=== PATIENT | female | born 1965 ===

== ENCOUNTER 2017-07-24 18:32 | Emergency (ER) | payer MEDICAID ==
[2017-07-24 18:35] VITALS: BP 105/67; PULSE 62; RESP 16; TEMP 98.3; O2SAT 100
--- NOTE | 2017-07-24 20:12 | ED PDOC ---
Syncope/Near Syncope/Dizziness Time Seen by Provider: 07/24/17 19:08 Chief Complaint (Nursing): Dizziness/Lightheaded Chief Complaint (Provider): Dizziness History Per: Patient History/Exam Limitations: no limitations Onset/Duration Of Symptoms: Days (x1) Current Symptoms Are (Timing): Still Present Seizure Or Post-ictal Symptoms: None Additional Complaint(s): Leigh Stanley is a 52 year old female, with a past medical history HTN, diabetes , hypercholesterolemia, hypothyroidism and gastritis, who presents to the emergency department complaining of vertiginous dizziness onset since last night. Patient states symptoms are worst when she tries to walk. Today it was so severe she thought she was going to pass out but didn't. Patient also reports chronic constipation, mild rhinorrhea for about a month, nausea, and diffused body cramping but denies any vomiting, headache, focal weakness, fever , cough, sore throat, blurry vision except for the time she almost passed out. No further medical complaints. PMD: Dr. Fisher Past Medical History Reviewed: Historical Data, Nursing Documentation, Vital Signs Vital Signs: Last Vital Signs Temp 98.3 F 07/24/17 18:33 Pulse 62 07/24/17 18:33 Resp 16 07/24/17 18:33 BP 105/67 07/24/17 18:33 Pulse Ox 100 07/24/17 18:33 - Medical History PMH: Anemia, Back Problems, Diabetes, Gastritis, GERD, HTN, Hypercholesterolemia , Hypothyroidism Denies: Chronic Kidney Disease - Surgical History Surgical History: Back Surgery, Hernia Repair Other surgeries: gastric bypass, hysterectomy, neck and back surgery - Family History Family History: States: Hypertension - Social History Current smoker - smoking cessation education provided: Yes (light smoker ) Alcohol: None Drugs: Denies - Home Medications Home Medications: Ambulatory Orders Medication Instructions Recorded Carvedilol [Coreg] 3.125 mg PO BID 02/03/15 Levothyroxine [Synthroid] 88 mcg PO DAILY 02/03/15 Lisinopril 40 mg PO DAILY 02/03/15 MetFORMIN [glucoPHAGE] 1,000 mg PO BID 02/03/15 Omeprazole [PrilOSEC] 40 mg PO DAILY 02/03/15 Sitagliptin Phosphate [Januvia] 50 mg PO DAILY 02/03/15 buPROPion XL [Wellbutrin XL] 300 mg PO DAILY 02/03/15 Cyanocobalamin (Vitamin B-12) 5,000 mcg PO DAILY 03/17/15 [Vitamin B-12] Ergocalciferol (Vitamin D2) 50,000 unit PO QWK 03/17/15 [Vitamin D2] Famotidine [Pepcid] 20 mg PO DAILY 03/17/15 Ferrous Sulfate [Feosol] 325 mg PO TID 03/17/15 Liraglutide [Victoza 2-Bill] 1.8 mg SC DAILY 03/17/15 Topiramate [Topamax] 50 mg PO DAILY 03/17/15 hydroCHLOROthiazide [Hydrodiuril] 25 mg PO DAILY 03/17/15 Hydrocodone/Acetaminophen 1 tab PO QID PRN #15 tab 06/15/15 [Hydrocodone-Acetaminophen 325 mg-5 mg] Oxycodone HCl/Acetaminophen 1 each PO Q6 PRN #10 tablet 10/14/15 [Percocet 5-325 mg Tablet] Cyclobenzaprine [Cyclobenzaprine 10 mg PO BID PRN #10 tab 03/14/16 HCl] Naproxen 500 mg PO BID PRN #20 tab 03/14/16 Oxycodone HCl/Acetaminophen 1 tab PO Q6 PRN #10 tab 03/14/16 [Percocet 325 mg-5 mg] diaZEpam [Valium] 5 mg PO Q8 PRN #12 tab 03/18/16 oxyCODONE/Acetaminophen [Percocet 1 ea PO Q6 PRN #10 tab 03/18/16 5/325 mg Tab] Meclizine HCl 50 mg PO BID PRN #30 tablet 07/24/17 Ondansetron ODT [Zofran ODT] 1 odt PO Q6 PRN #20 odt 07/24/17 - Allergies Allergies/Adverse Reactions: Allergies Allergy/AdvReac Type Severity Reaction Status Date / Time No Known Allergies Allergy Verified 02/17/15 09:21 Review of Systems ROS Statement: Except As Marked, All Systems Reviewed And Found Negative Constitutional: Positive for: Other (diffused body cramping). Negative for: Fever Eyes: Negative for: Vision Change (blurry vision) ENT: Positive for: Nose Discharge (mild rhinorrhea). Negative for: Throat Pain Respiratory: Negative for: Cough Gastrointestinal: Positive for: Nausea, Constipation (chronic). Negative for: Vomiting Neurological: Positive for: Dizziness. Negative for: Weakness (focal), Headache Physical Exam - Reviewed Nursing Documentation Reviewed: Yes Vital Signs Reviewed: Yes - Physical Exam Appears: Positive for: No Acute Distress Head Exam: Positive for: ATRAUMATIC, NORMOCEPHALIC Skin: Positive for: Warm, Dry Eye Exam: Positive for: EOMI, PERRL. Negative for: Nystagmus ENT: Negative for: Pharyngeal Erythema, Tonsillar Exudate Cardiovascular/Chest: Positive for: Regular Rate, Rhythm, Chest Non Tender. Negative for: Murmur Respiratory: Positive for: Normal Breath Sounds. Negative for: Respiratory Distress Gastrointestinal/Abdominal: Positive for: Soft. Negative for: Tenderness Back: Positive for: Normal Inspection. Negative for: Decreased ROM, Muscle Spasm Extremity: Positive for: Normal ROM. Negative for: Deformity Lymphatic: Negative for: Adenopathy Neurologic/Psych: Positive for: Alert, credit union teller II-XII (intact), Oriented (x3), Cerebellar Tests (finger to nose normal). Negative for: Motor/Sensory Deficits - Laboratory Results Result Diagrams: 07/24/17 21:08 07/24/17 21:08 - ECG ECG Rhythm: Positive for: Normal QRS, Normal ST Segment, Sinus Bradycardia O2 Sat by Pulse Oximetry: 100 (RA) Pulse Ox Interpretation: Normal Medical Decision Making Medical Decision Making: Initial Impression: dizziness. differential includes but not limited to vertigo , dehydration, electrolyte abnormality, viral illness, anemia Lab unremarkable. Pt feels better s/p Meclizine. DW pt findings and plan of care. Stable for dc with f/u PMD Scribe Attestation: Documented by Mich Betancourt, acting as a scribe for Renee Castillo MD Provider Scribe Attestation: All medical record entries made by the Scribe were at my direction and personally dictated by me. I have reviewed the chart and agree that the record accurately reflects my personal performance of the history, physical exam, medical decision making, and the department course for this patient. I have also personally directed, reviewed, and agree with the discharge instructions and disposition. Disposition - Clinical Impression Clinical Impression: Dizziness - Disposition Referrals: Marlo Chacon MD [Staff Provider] - Juan Fisher MD [Staff Provider] - 07/25/17 (VISITA WRIGHT DOCTOR POR LA MANANA Y UN NEUROLOGO POR MAS EVALUACION DE MEREO) Disposition: Routine/Home Disposition Time: 23:06 Condition: IMPROVED Prescriptions: Meclizine HCl 50 mg PO BID PRN #30 tablet PRN Reason: Dizziness Ondansetron ODT [Zofran ODT] 1 odt PO Q6 PRN #20 odt PRN Reason: Nausea/Vomiting Instructions: Dizziness (ED) Print Language: CITIZEN OF [place]
[2017-07-24 21:29] LABS: BASO # 0.1 K/uL (0.0-0.2); BASO % 0.6 % (0.0-2.0); EOS # 0.1 K/uL (0.0-0.7); EOS % 1.3 % (0.0-4.0); HEMOGLOBIN 13.3 g/dL (12.0-16.0); LYMPH # 3.3 K/uL (1.0-4.3); LYMPH % 37.7 % (20.0-40.0); MEAN CORPUSCULAR HEMOGLOBIN 27.3 pg (27.0-31.0); MEAN CORPUSCULAR HGB CONC 31.7 g/dL (33.0-37.0); MEAN PLATELET VOLUME 9.2 fl (7.2-11.7); MONO # 0.8 K/uL (0.0-0.8); NEUT # 4.5 K/uL (1.8-7.0); NEUT % 51.4 % (50.0-75.0); NRBC % 0.3 % (0.0-0.0); RBC 4.86 Mil/uL (3.80-5.20); RED CELL DISTRIBUTION WIDTH 15.1 % (11.5-14.5); WHITE BLOOD COUNT 8.7 K/uL (4.8-10.8)
[2017-07-24 21:37] LABS: ALB/GLOB RATIO 1.1 (1.0-2.1); ALBUMIN 4.3 g/dL (3.5-5.0); ALT/SGPT 36 U/L (9-52); AST/SGOT 27 U/L (14-36); BLOOD UREA NITROGEN 27 mg/dl (7-17); CALCIUM 9.7 mg/dL (8.4-10.2); GFR AFRICAN-AMERICAN > 60; GFR NON-AFRICAN AMERICAN > 60
--- NOTE | 2017-07-25 08:14 | CARD ---
APPROVED REPORT EKG Measurement Heart [id number] <Conclusion> Sinus bradycardia Otherwise normal ECG
== END 2017-07-24 23:30 | disposition home or self-care (01) ==
LOC: H.ER 18:32
DX: R42 Dizziness and giddiness (principal); E03.9 Hypothyroidism, unspecified; E11.9 Type 2 diabetes mellitus without complications; E78.00 Pure hypercholesterolemia, unspecified; I10 Essential (primary) hypertension; K21.9 Gastro-esophageal reflux disease without esophagitis; Z79.84 Long term (current) use of oral hypoglycemic drugs; Z90.710 Acquired absence of both cervix and uterus
CPT/HCPCS: 80053; 81025; 83735; 84100; 84443; 84484; 85025; 93005; 96374; 99283; J2405

== ENCOUNTER 2017-08-30 19:30 | Emergency (ER) | payer SELFPAY ==
[2017-08-30 19:45] VITALS: BP 154/92; PULSE 80; RESP 16; TEMP 99.1; O2SAT 100
== END 2017-08-30 21:00 | disposition left against medical advice (07) ==
LOC: H.ER 19:30
DX: Z02.89 Encounter for other administrative examinations (principal)

== ENCOUNTER 2018-10-29 15:14 | Inpatient (IN) | payer MEDICARE ==
[2018-10-29] MEDS ORDERED: Sodium Chloride 0.9% 1,000 ML IV STA ×2 (16:09→20:33)
--- NOTE | 2018-10-29 16:29 | ED PDOC ---
HPI: Abdomen Time Seen by Provider: 10/29/18 15:35 Chief Complaint (Nursing): Abdominal Pain Chief Complaint (Provider): Abdominal Pain History Per: Patient History/Exam Limitations: no limitations Onset/Duration Of Symptoms: Days Outside of [place] travel?: No Current Symptoms Are (Timing): Still Present Location Of Pain/Discomfort: Diffuse, Epigastric Quality Of Discomfort: Cramping Associated Symptoms: Nausea, Vomiting, Diarrhea Exacerbating Factors: None Alleviating Factors: None Additional Complaint(s): 53 y/o female with a PMHx of HTN and DM presents to the ED for evaluation of abdominal pain associated with nausea, vomiting and diarrhea. Patient describes pain as cramping, continuous and constant. Patient states pain is diffusely located and comes in waves. Patient notes of having episodes of non-bloody, non- bilious vomiting and watery, non-bloody diarrhea. Otherwise, patient denies fevers, recent travel and antibiotic use. PMD: Juan Fisher Past Medical History Reviewed: Historical Data, Nursing Documentation, Vital Signs Vital Signs: Last Vital Signs Temp 98.2 F 10/29/18 15:23 Pulse 74 10/29/18 15:23 Resp 17 10/29/18 15:23 BP 129/76 10/29/18 15:23 Pulse Ox 100 10/29/18 15:23 - Medical History PMH: Anemia, Back Problems, Diabetes, Gastritis, GERD, HTN, Hypercholesterolemia, Hypothyroidism Denies: Chronic Kidney Disease - Surgical History Surgical History: Back Surgery, Hernia Repair Other surgeries: Gastric Bypass - Family History Family History: States: Hypertension - Home Medications Home Medications: Ambulatory Orders Medication Instructions Recorded Carvedilol [Coreg] 3.125 mg PO BID 02/03/15 Levothyroxine [Synthroid] 88 mcg PO DAILY 02/03/15 Lisinopril 40 mg PO DAILY 02/03/15 MetFORMIN [glucoPHAGE] 1,000 mg PO BID 02/03/15 Omeprazole [PrilOSEC] 40 mg PO DAILY 02/03/15 Sitagliptin Phosphate [Januvia] 50 mg PO DAILY 02/03/15 buPROPion XL [Wellbutrin XL] 300 mg PO DAILY 02/03/15 Cyanocobalamin (Vitamin B-12) 5,000 mcg PO DAILY 03/17/15 [Vitamin B-12] Ergocalciferol (Vitamin D2) 50,000 unit PO QWK 03/17/15 [Vitamin D2] Famotidine [Pepcid] 20 mg PO DAILY 03/17/15 Ferrous Sulfate [Feosol] 325 mg PO TID 03/17/15 Liraglutide [Victoza 2-Bill] 1.8 mg SC DAILY 03/17/15 Topiramate [Topamax] 50 mg PO DAILY 03/17/15 hydroCHLOROthiazide [Hydrodiuril] 25 mg PO DAILY 03/17/15 Hydrocodone/Acetaminophen 1 tab PO QID PRN #15 tab 06/15/15 [Hydrocodone-Acetaminophen 325 mg-5 mg] Oxycodone HCl/Acetaminophen 1 each PO Q6 PRN #10 tablet 10/14/15 [Percocet 5-325 mg Tablet] Cyclobenzaprine [Cyclobenzaprine 10 mg PO BID PRN #10 tab 03/14/16 HCl] Naproxen 500 mg PO BID PRN #20 tab 03/14/16 Oxycodone HCl/Acetaminophen 1 tab PO Q6 PRN #10 tab 03/14/16 [Percocet 325 mg-5 mg] diaZEpam [Valium] 5 mg PO Q8 PRN #12 tab 03/18/16 oxyCODONE/Acetaminophen [Percocet 1 ea PO Q6 PRN #10 tab 03/18/16 5/325 mg Tab] Meclizine HCl 50 mg PO BID PRN #30 tablet 07/24/17 Ondansetron ODT [Zofran ODT] 1 odt PO Q6 PRN #20 odt 07/24/17 - Allergies Allergies/Adverse Reactions: Allergies Allergy/AdvReac Type Severity Reaction Status Date / Time No Known Allergies Allergy Verified 08/30/17 19:41 Review of Systems ROS Statement: Except As Marked, All Systems Reviewed And Found Negative Constitutional: Negative for: Fever Gastrointestinal: Positive for: Nausea, Vomiting, Abdominal Pain, Diarrhea Physical Exam - Reviewed Nursing Documentation Reviewed: Yes Vital Signs Reviewed: Yes - Physical Exam Appears: Positive for: Uncomfortable Head Exam: Positive for: ATRAUMATIC, NORMOCEPHALIC Skin: Positive for: Normal Color, Warm, Dry Eye Exam: Positive for: Normal appearance, EOMI, PERRL Neck: Positive for: Normal, Painless ROM, Supple Cardiovascular/Chest: Positive for: Regular Rate, Rhythm. Negative for: Murmur Respiratory: Positive for: Normal Breath Sounds. Negative for: Respiratory Distress Gastrointestinal/Abdominal: Positive for: Soft, Tenderness (diffuse tenderness to palpation but more prominent in the epigastric region) Back: Positive for: Normal Inspection. Negative for: L CVA Tenderness, R CVA Tenderness, Vertebral Tenderness Extremity: Positive for: Normal ROM. Negative for: Deformity Neurological/Psych: Positive for: Awake, Alert, Oriented (x3). Negative for: Motor/Sensory Deficits - Laboratory Results Result Diagrams: 10/29/18 16:42 10/29/18 16:42 - ECG O2 Sat by Pulse Oximetry: 100 (RA) Pulse Ox Interpretation: Normal Medical Decision Making Medical Decision Making: Time: 1609 Impression: Abdominal Pain Differentials include acute gastroenteritis, colitis, diverticulitis and pancreatitis. Other conditions are also considered but not listed. -- CT Abd/Pelvis IV Contrast ONLY -- CMP -- Lipase -- CBC wtih Differentials -- Bentyl 10 mg PO -- Sodium Chloride IV 1000 ml/hr -- Torafol 30 mg IVP -- Zofran Inj 4 mg IV Scribe Attestation: Documented by Samantha Goodwin, acting as a scribe Ifeoma Doe MD. Provider Scribe Attestation: All medical record entries made by the Scribe were at my direction and p ersonally dictated by me. I have reviewed the chart and agree that the record accurately reflects my personal performance of the history, physical exam, medical decision making, and the department course for this patient. I have also personally directed, reviewed, and agree with the discharge instructions and disposition. Disposition - Clinical Impression Clinical Impression: Abdominal pain, Vomiting and diarrhea - Patient ED Disposition Is Patient to be Admitted: Transfer of Care Doctor Will See Patient In The: Office Counseled Patient/Family Regarding: Studies Performed, Diagnosis - Disposition Disposition: Transfer of Care Disposition Time: 19:00 Condition: STABLE Patient Signed Over To: Jose G Sykes
[2018-10-29 16:55] LABS: BASO # 0.1 K/uL (0.0-0.2); BASO % 0.7 % (0.0-2.0); EOS % 0.6 % (0.0-4.0); HEMOGLOBIN 13.5 g/dL (12.0-16.0); LYMPH # 1.2 K/uL (1.0-4.3); LYMPH % 16.5 % (20.0-40.0); MEAN CELL VOLUME 85.9 fl (81.0-99.0); MEAN CORPUSCULAR HEMOGLOBIN 28.9 pg (27.0-31.0); MEAN CORPUSCULAR HGB CONC 33.6 g/dL (33.0-37.0); MONO # 0.6 K/uL (0.0-0.8); MONO % 8.4 % (0.0-10.0); NEUT # 5.2 K/uL (1.8-7.0); NEUT % 73.8 % (50.0-75.0); NRBC % 0.1 % (0.0-0.0); RBC 4.66 Mil/uL (3.80-5.20); RED CELL DISTRIBUTION WIDTH 13.4 % (11.5-14.5); WHITE BLOOD COUNT 7.1 K/uL (4.8-10.8)
[2018-10-29 17:14] LABS: ALB/GLOB RATIO 1.3 (1.0-2.1); ALBUMIN 4.1 g/dL (3.5-5.0); ALT/SGPT 27 U/L (9-52); AST/SGOT 25 U/L (14-36); BLOOD UREA NITROGEN 26 mg/dl (7-17); GFR NON-AFRICAN AMERICAN > 60; LIPASE 69 U/L (23-300)
[2018-10-29] MEDS ORDERED: Iohexol 300 100 ML IJ ONE (18:21)
[2018-10-29] MEDS ORDERED: Sodium Chloride 0.9% 50 ML IV ONE (18:21)
--- NOTE | 2018-10-29 19:33 | ED PDOC ---
- Laboratory Results Result Diagrams: 10/31/18 06:20 10/31/18 06:20 Lab Results: Total Bilirubin 0.6 mg/dl (0.2-1.3) 10/29/18 16:42 AST 25 U/L (14-36) 10/29/18 16:42 ALT 27 U/L (9-52) 10/29/18 16:42 Alkaline Phosphatase 59 U/L (38-126) 10/29/18 16:42 Total Protein 7.3 G/DL (6.3-8.2) 10/29/18 16:42 Albumin 4.1 g/dL (3.5-5.0) 10/29/18 16:42 Globulin 3.2 gm/dL (2.2-3.9) 10/29/18 16:42 Albumin/Globulin Ratio 1.3 (1.0-2.1) 10/29/18 16:42 Lipase 69 U/L (23-300) 10/29/18 16:42 - ECG O2 Sat by Pulse Oximetry: 100 (RA) Pulse Ox Interpretation: Normal Medical Decision Making Medical Decision Making: Time: 1899 -- Patient endorsed to me by Dr. Doe, pending CT, re-evaluation and final ER disposition. Time: 1947 EXAM: CT Abdomen and Pelvis with IV contrast CLINICAL HISTORY: Abd pain vomiiing, diarrhea TECHNIQUE: Axial computed tomography images of the abdomen and pelvis with intravenous contrast. 875.01 mGy-cm CONTRAST: With; [id number] 95ML COMPARISON: None provided. FINDINGS: LUNG BASES: The lung bases appear clear. No pleural effusions are seen. LIVER: Unremarkable. GALLBLADDER AND BILE DUCTS: The gallbladder is distended packed with cholesterol gallstones and sludge. There is evidence of gallbladder wall thickening compatible with cholecystitis. PANCREAS: Unremarkable. SPLEEN: Unremarkable. ADRENAL GLANDS: Unremarkable. KIDNEYS, URETERS, AND BLADDER: The kidneys appear within normal limits. There is no hydronephrosis or hydroure ter. No urinary calculi are seen. STOMACH AND BOWEL: Thick walled fluid filled duodenum and loops of jejunum as well as ileum compatible with enteritis. Infectious and inflammatory etiologies are considered. Consider consultation with GI service. APPENDIX: No evidence of acute appendicitis on CT examination. PERITONEUM: No free fluid. No free air. LYMPH NODES: No lymphadenopathy is evident. REPRODUCTIVE: Unremarkable as visualized. VASCULATURE: No evidence of abdominal aortic aneurysm. BONES: No aggressive appearing osseous lesion. No acute osseous pathology evident. IMPRESSION: 1. The gallbladder is distended packed with cholesterol gallstones and sludge. There is evidence of gallbladder wall thickening compatible with cholecystitis. 2. Enteritis. Infectious and inflammatory etiologies are considered. Consider consultation with GI service. Electronically signed on Oct 29, 2018 7:48:40 PM EDT by: Ashish Navarro M.D., MBA Certified By [facility] [facility] Fellowship Trained MRI and CT Specialist Time: 2023 abx ordered -- Patient diagnosed with cholecystitis, call placed to Dr. Fisher. Spoke to Dr. Damico who will be accepting the patient to Dr. Fisher's service and is requesting Surgery consult. Call for surgery (Dr. Dee) consult placed. Time: 2032 -- Spoke to Dr. Dee who will consult the patient in the morning. Time: 2034 -- Spoke to surgical residents who are aware of patient. Discussed clinical findings and plan of care with patient who is in agreement. Time: 2043 -- president & founder at bedside, evaluating the patient. ------ Scribe Attestation: Documented by Samantha Goodwin, acting as a scribe forJose G Sykes MD. Provider Scribe Attestation: All medical record entries made by the Scribe were at my direction and personally dictated by me. I have reviewed the chart and agree that the record accurately reflects my personal performance of the history, physical exam, medical decision making, and the department course for this patient. I have also personally directed, reviewed, and agree with the discharge instructions and disposition. Disposition Counseled Patient/Family Regarding: Studies Performed, Diagnosis - Clinical Impression Clinical Impression: Abdominal pain, Vomiting and diarrhea, Cholecystitis - POA Present On Arrival: None - Disposition Disposition: Admitted as In-Patient Disposition Time: 20:20 Condition: STABLE
[2018-10-29] MEDS ORDERED: Piperacillin/Tazobact 4.5 GM in Sodium Chloride 0.9% 100 ML IVPB STA (20:23)
--- NOTE | 2018-10-29 20:56 | CP.PCM.CON ---
<Sp Hutchins Malorie - Last Filed: 10/30/18 06:00> History of Present Illness - History of Present Illness History of Present Illness: General Surgery Consult: Dr Dee Pt is a 53F with PMH of HTN, DM, hypothyroidism s/p bariatric gastric sleeve 3 years prior (80lb weight loss). Pt presents with 24 hours of diffuse abdominal pain accompanied by nausea and diarrhea. Pt reports pain started after dinner the previous night. Following about 1 hour after her dinner (chicken, rice, veggies) pt began to have non-bloody and non-billious emesis. Shortly following this she developed intense diffuse cramping abdominal pain. This was subsequently followed by 6-7 episodes of watery non-bloody non-foul smellling diarrhea which persisted into the car stower. Since then pt has not had fur ther diarrhea but continues to have diffuse cramping pain and now an intense epigastric burning sensation. Her emesis has subsided. She has never had pain like this before. Pt denies any fevers, chills, sob, chest pain, dysuria. ROS + headache. Denies any recent travel or sick contacts PMH: htn, dm, hypothyroid PSH: sleeve gastrectomy Review of Systems - Review of Systems All systems: reviewed and no additional remarkable complaints except (as per hpi) Past Patient History - Tetanus Immunizations Tetanus Immunization: Unknown - Past Medical History & Family History Past Medical History?: Yes - Past Social History Smoking Status: Never Smoked - CARDIAC Hx Hypercholesterolemia: Yes Hx Hypertension: Yes - PULMONARY Hx Respiratory Disorders: No - NEUROLOGICAL Hx Neurological Disorder: No - HEENT Hx HEENT Problems: No - RENAL Hx Chronic Kidney Disease: No - ENDOCRINE/METABOLIC Hx Hypothyroidism: Yes - HEMATOLOGICAL/ONCOLOGICAL Hx Anemia: Yes - INTEGUMENTARY Hx Dermatological Problems: No - MUSCULOSKELETAL/RHEUMATOLOGICAL Hx Musculoskeletal Disorders: No - GASTROINTESTINAL Hx Gastritis: Yes - GENITOURINARY/GYNECOLOGICAL Hx Genitourinary Disorders: No - PSYCHIATRIC Hx Psychophysiologic Disorder: No Hx Substance Use: No - SURGICAL HISTORY Other/Comment: gastric bypass - ANESTHESIA Hx Anesthesia: Yes Hx Anesthesia Reactions: No Meds Allergies/Adverse Reactions: Allergies Allergy/AdvReac Type Severity Reaction Status Date / Time No Known Allergies Allergy Verified 08/30/17 19:41 - Medications Medications: Current Medications Piperacillin Sod/Tazobactam (Sod 4.5 gm/ Sodium Chloride) 100 mls @ 100 mls/hr IVPB STAT STA; Protocol Stop: 10/29/18 21:22 Sodium Chloride (Sodium Chloride 0.9%) 1,000 mls @ 999 mls/hr IV .Q1H1M STA Stop: 10/29/18 21:33 Physical Exam - Constitutional Appears: Non-toxic, No Acute Distress - Head Exam Head Exam: NORMAL INSPECTION - Eye Exam Eye Exam: Normal appearance. absent: Scleral icterus - Respiratory Exam Respiratory Exam: absent: Respiratory Distress - Cardiovascular Exam Cardiovascular Exam: REGULAR RHYTHM. absent: Tachycardia - GI/Abdominal Exam GI & Abdominal Exam: Soft, Tenderness (diffuse but minimal). absent: Distended, Firm, Guarding, Hernia, Rigid - Rectal Exam Rectal Exam: Deferred - Extremities Exam Extremities exam: Negative for: pedal edema - Neurological Exam Neurological exam: Alert, Oriented x3 - Psychiatric Exam Psychiatric exam: Normal Affect, Normal Mood Results - Vital Signs Recent Vital Signs: Last Vital Signs Temp 98.2 F 10/29/18 15:23 Pulse 74 10/29/18 15:23 Resp 17 10/29/18 15:23 BP 129/76 10/29/18 15:23 Pulse Ox 100 10/29/18 20:44 - Labs Result Diagrams: 10/29/18 16:42 10/29/18 16:42 Labs: Laboratory Results - last 24 hr 10/29/18 10/29/18 16:42 16:42 WBC 7.1 RBC 4.66 Hgb 13.5 Hct 40.1 MCV 85.9 MCH 28.9 MCHC 33.6 RDW 13.4 Plt Count 179 MPV 9.0 Neut % (Auto) 73.8 Lymph % (Auto) 16.5 L [place] % (Auto) 8.4 Eos % (Auto) 0.6 Baso % (Auto) 0.7 Neut # (Auto) 5.2 Lymph # (Auto) 1.2 [place] # (Auto) 0.6 Eos # (Auto) 0.0 Baso # (Auto) 0.1 Sodium 137 Potassium 4.2 Chloride 100 Carbon Dioxide 28 Anion Gap 13 BUN 26 H Creatinine 0.6 L Est GFR ( Amer) > 60 Est GFR (Non-Af Amer) > 60 Random Glucose 114 H Calcium 9.0 Total Bilirubin 0.6 AST 25 ALT 27 Alkaline Phosphatase 59 Total Protein 7.3 Albumin 4.1 Globulin 3.2 Albumin/Globulin Ratio 1.3 Lipase 69 Assessment & Plan - Assessment and Plan (Free Text) Assessment: 53F with enteritis and CT findings consistent with cholelithiasis Plan: symptoms likely secondary to enteritis IVF NPO will obtain HIDA to r/o cysticduct obstruction d/w Dr Luiz Hutchins, PGY4 <Sarbjit Erickson - Last Filed: 10/30/18 12:58> Meds - Medications Medications: Current Medications Carvedilol (Coreg) 3.125 mg PO BID [facility] Last Admin: 10/30/18 09:43 Dose: Not Given Cyanocobalamin (Vitamin B12 1000 Mcg Tab) 5,000 mcg PO DAILY [facility] Last Admin: 10/30/18 09:51 Dose: Not Given Ferrous Sulfate (Feosol) 325 mg PO TID [facility] Last Admin: 10/30/18 09:51 Dose: Not Given Hydrochlorothiazide (Hydrodiuril) 25 mg PO DAILY [facility] Last Admin: 10/30/18 09:51 Dose: Not Given Lactated Ringer's (Lactated Ringer's) 1,000 mls @ 120 mls/hr IV .Q8H20M [facility] Last Admin: 10/30/18 05:20 Dose: Not Given Ampicillin Sodium/Sulbactam (Sodium 1.5 gm/ Sodium Chloride) 100 mls @ 100 mls/hr IVPB Q6 [facility]; Protocol Levothyroxine Sodium (Synthroid) 88 mcg PO DAILY@0630 [facility] Last Admin: 10/30/18 06:47 Dose: 88 mcg Lisinopril (Zestril) 40 mg PO DAILY [facility] Last Admin: 10/30/18 09:54 Dose: Not Given Metformin HCl (Glucophage) 1,000 mg PO BID [facility] Last Admin: 10/30/18 09:51 Dose: Not Given Morphine Sulfate (Morphine) 2 mg IVP Q4 PRN PRN Reason: Pain, moderate (4-7) Last Admin: 10/30/18 09:44 Dose: 2 mg Ondansetron HCl (Zofran Inj) 4 mg IVP Q4 PRN PRN Reason: Nausea/Vomiting Pantoprazole Sodium (Protonix Ec Tab) 40 mg PO DAILY [facility] Last Admin: 10/30/18 09:51 Dose: Not Given Results - Vital Signs Recent Vital Signs: Last Vital Signs Temp 98.1 F 10/30/18 08:24 Pulse 58 L 10/30/18 09:54 Resp 20 10/30/18 08:24 BP 122/75 10/30/18 09:54 Pulse Ox 94 L 10/30/18 08:24 - Labs Result Diagrams: 10/29/18 16:42 10/29/18 16:42 Labs: Laboratory Results - last 24 hr 10/29/18 10/29/18 10/30/18 16:42 16:42 05:00 WBC 7.1 RBC 4.66 Hgb 13.5 Hct 40.1 MCV 85.9 MCH 28.9 MCHC 33.6 RDW 13.4 Plt Count 179 MPV 9.0 Neut % (Auto) 73.8 Lymph % (Auto) 16.5 L [place] % (Auto) 8.4 Eos % (Auto) 0.6 Baso % (Auto) 0.7 Neut # (Auto) 5.2 Lymph # (Auto) 1.2 [place] # (Auto) 0.6 Eos # (Auto) 0.0 Baso # (Auto) 0.1 PT INR APTT Sodium 137 Potassium 4.2 Chloride 100 Carbon Dioxide 28 Anion Gap 13 BUN 26 H Creatinine 0.6 L Est GFR ( Amer) > 60 Est GFR (Non-Af Amer) > 60 POC Glucose (mg/dL) Random Glucose 114 H Calcium 9.0 Total Bilirubin 0.6 AST 25 ALT 27 Alkaline Phosphatase 59 Total Protein 7.3 Albumin 4.1 Globulin 3.2 Albumin/Globulin Ratio 1.3 Lipase 69 Urine Color Yellow Urine Clarity Slighty-cloudy Urine pH 6.0 Ur Specific [place] 1.031 H Urine Protein Negative Urine Glucose (UA) Neg Urine Ketones Negative Urine Blood Negative Urine Nitrate Negative Urine Bilirubin Negative Urine Urobilinogen 2.0 H Ur Leukocyte Esterase Neg Urine RBC (Auto) 2 Urine Microscopic WBC 3 Ur Squamous Epith Cells 5 10/30/18 10/30/18 10/30/18 05:19 06:05 11:21 WBC RBC Hgb Hct MCV MCH MCHC RDW Plt Count MPV Neut % (Auto) Lymph % (Auto) [place] % (Auto) Eos % (Auto) Baso % (Auto) Neut # (Auto) Lymph # (Auto) [place] # (Auto) Eos # (Auto) Baso # (Auto) PT 13.4 H INR 1.2 APTT 33.7 Sodium Potassium Chloride Carbon Dioxide Anion Gap BUN Creatinine Est GFR ( Amer) Est GFR (Non-Af Amer) POC Glucose (mg/dL) 99 83 Random Glucose Calcium Total Bilirubin AST ALT Alkaline Phosphatase Total Protein Albumin Globulin Albumin/Globulin Ratio Lipase Urine Color Urine Clarity Urine pH Ur Specific [place] Urine Protein Urine Glucose (UA) Urine Ketones Urine Blood Urine Nitrate Urine Bilirubin Urine Urobilinogen Ur Leukocyte Esterase Urine RBC (Auto) Urine Microscopic WBC Ur Squamous Epith Cells Assessment & Plan - Assessment and Plan (Free Text) Plan: 53yo F with Hx of HTN, DM, Hypothyroidism, previous sleeve gastrectomy presents to ED with complaints of intermitttent abdominal pain and cramping, generalied in nature associated with episodes of nausea, vomiting,and non bloody diarrhea. Symptoms started monday night shortly after eating food. Pt denies any fever, chills, sob, cp, dysuria, hematuria. Pt on CT found to have possible enteritis vs cholecystitis. Reports similar episodes of abdominal discomfort. PSHx: sleeve, gastrectomy 2016, hysterectomy AVSS gen; awake, alert, NAD HEENT: NC/AT, EOMI, PERRLA, -scleral icterus CTA b/l S1S2 abd: soft, obese, ND, +RUQ tenderness, no peritoneal signs, well healed lap port incisions and pfannenstiel incision ext: no calf tenderness b/l 53yo F with resolved diarrhea, continues to report epigastric/RUQ pain -CT scan reviewed - possible enteritis, GB with multiple stones, thickened gb wall -US - reviewed - multiple stones, f/u final report -pt clinically continues to have RUQ tenderness will f/u HIDA -if symptoms continue will schedule for laparoscopic cholecystectomy on 10/31
[2018-10-29] MEDS: Lactated Ringer's 1,000 ML IV SCH (22:30)
[2018-10-30] MEDS ORDERED: Insulin Regular 100 units/ml ONE (03:40)
[2018-10-30] MEDS: Lactated Ringer's 1,000 ML IV SCH ×3 (05:20→21:40)
[2018-10-30 06:35] LABS: INR 1.2; PROTHROMBIN TIME 13.4 Seconds (9.8-13.1)
[2018-10-30 06:37] LABS: PARTIAL THROMBOPLASTIN TIME 33.7 Seconds (25.6-37.1)
[2018-10-30] MEDS: Levothyroxine 88 MCG TAB PO SCH (06:47)
[2018-10-30 06:59] LABS: SQUAMOUS EPITHIAL 5 /hpf (0-5); URINE BILIRUBIN NEGATIVE (NEGATIVE); URINE BLOOD NEGATIVE (NEGATIVE); URINE CLARITY SLIGHTY-CLOUDY (Clear); URINE COLOR YELLOW (YELLOW); URINE GLUCOSE (UA) NEG (NEGATIVE); URINE LEUKOCYTE ESTERASE NEG Leu/uL (Negative); URINE PROTEIN NEGATIVE (NEGATIVE)
--- NOTE | 2018-10-30 08:54 | CP.PCM.PN ---
Subjective - Date & Time of Evaluation Date of Evaluation: 10/30/18 Time of Evaluation: 08:52 - Subjective Subjective: General Surgery Progress Note: Dr. Dee 53 year old female patient seen and examined at bedside this AM. Patient endorses abdominal pain with nausea. Plan for HIDA and RUQ US today. Denies vomiting/diarrhea/fever/shortness of breath/chest pain. Objective - Vital Signs/Intake and Output Vital Signs (last 24 hours): Temp Pulse Resp BP Pulse Ox 98.1 F 58 L 20 124/77 94 L 10/30/18 08:24 10/30/18 08:24 10/30/18 08:24 10/30/18 08:24 10/30/18 08:24 - Medications Medications: Current Medications Carvedilol (Coreg) 3.125 mg PO BID [facility] Cyanocobalamin (Vitamin B12 1000 Mcg Tab) 5,000 mcg PO DAILY [facility] Ferrous Sulfate (Feosol) 325 mg PO TID [facility] Hydrochlorothiazide (Hydrodiuril) 25 mg PO DAILY [facility] Lactated Ringer's (Lactated Ringer's) 1,000 mls @ 120 mls/hr IV .Q8H20M [facility] Last Admin: 10/30/18 05:20 Dose: Not Given Levothyroxine Sodium (Synthroid) 88 mcg PO DAILY@0630 [facility] Last Admin: 10/30/18 06:47 Dose: 88 mcg Lisinopril (Zestril) 40 mg PO DAILY [facility] Metformin HCl (Glucophage) 1,000 mg PO BID [facility] Morphine Sulfate (Morphine) 2 mg IVP Q4 PRN PRN Reason: Pain, moderate (4-7) Last Admin: 10/29/18 21:37 Dose: 2 mg Ondansetron HCl (Zofran Inj) 4 mg IVP Q4 PRN PRN Reason: Nausea/Vomiting Pantoprazole Sodium (Protonix Ec Tab) 40 mg PO DAILY [facility] - Labs Labs: 10/29/18 16:42 10/29/18 16:42 PT 13.4 Seconds (9.8-13.1) H 10/30/18 06:05 INR 1.2 10/30/18 06:05 APTT 33.7 Seconds (25.6-37.1) 10/30/18 06:05 - Constitutional Appears: Non-toxic, No Acute Distress - Head Exam Head Exam: ATRAUMATIC, NORMOCEPHALIC - Eye Exam Eye Exam: Normal appearance - ENT Exam ENT Exam: Mucous Membranes Moist - Cardiovascular Exam Cardiovascular Exam: REGULAR RHYTHM - GI/Abdominal Exam GI & Abdominal Exam: Soft, Tenderness - Neurological Exam Neurological Exam: Alert, Awake, Oriented x3 - Psychiatric Exam Psychiatric exam: Normal Affect, Normal Mood Assessment and Plan - Assessment and Plan (Free Text) Assessment: 53 year old female with enteritis and cholelithiasis Plan: - NPO - Pain control - F/u HIDA - F/u RUQ US - Further recs per Dr. Luiz Neil PGY1
[2018-10-30] MEDS ORDERED: LISINOPRIL 40 MG PO SCH (09:00)
[2018-10-30] MEDS ORDERED: CYANOCOBALAMIN 5000 MCG PO SCH (09:00)
--- NOTE | 2018-10-30 09:39 | RAD ---
Date of service: 10/30/2018 HISTORY: for surgery COMPARISON: Portable chest 03/17/2015. TECHNIQUE: Chest PA and lateral views FINDINGS: LUNGS: Improved inspiratory volumes noted. Linear atelectasis or fibrosis in the left base laterally. No infiltrates bilaterally. PLEURA: No significant pleural effusion identified. No pneumothorax apparent. CARDIOVASCULAR: No aortic atherosclerotic calcification present. Normal cardiac size. No pulmonary vascular congestion. OSSEOUS STRUCTURES: Anterior spinal fusion hardware noted at the cervicothoracic junction. VISUALIZED UPPER ABDOMEN: Surgical clips noted left upper quadrant once again. OTHER FINDINGS: None. IMPRESSION: Improved inspiratory volume bilaterally. Limited linear atelectasis or fibrosis in the inferior left lung zone laterally. No acute infiltrate. No pulmonary vascular congestion.
[2018-10-30] MEDS: Pantoprazole 40 mg EC Tab PO SCH (09:51)
--- NOTE | 2018-10-30 10:34 | CP.PCM.CON ---
History of Present Illness - History of Present Illness History of Present Illness: General Surgery Pt seen and examined this AM after having her RUQ US. Pt reports having nausea this AM relieved by zofran. Denies any vomiting or diarrhea. She continues to have RUQ abdominal pain. She reports prior to this admission she would occasionally have RUQ, epigastric and right upper back pain after eating certain foods. She denies knowing she had gallstones in the past. She reports only having gastritis that she was attributing to her pain. Of note, pt takes Aspirin at home and her last dose was 4 days ago. Labs and vitals noted PE Gen: Pt laying in bed in NAD. Obese Skin: warm and dry Cardio: s1s2 RRR Lungs: CTA bilaterally Abd: Soft, (+) RUQ tenderness, (+) Ozuna's, (+) mild epigastric tenderness Extr: (-) pitting edema bilaterally. A/P N/V/D, cholelithiasis Awaiting US results Pt pending HIDA scan Order entered for Unasyn Keep NPO as pt is tender Continue IVF Labs in the AM Pain meds prn. Antiemetics prn Past Patient History - Tetanus Immunizations Tetanus Immunization: Unknown - Past Medical History & Family History Past Medical History?: Yes - Past Social History Smoking Status: Never Smoked - CARDIAC Hx Hypercholesterolemia: Yes Hx Hypertension: Yes - PULMONARY Hx Respiratory Disorders: No - NEUROLOGICAL Hx Neurological Disorder: No - HEENT Hx HEENT Problems: No - RENAL Hx Chronic Kidney Disease: No - ENDOCRINE/METABOLIC Hx Hypothyroidism: Yes - HEMATOLOGICAL/ONCOLOGICAL Hx Anemia: Yes - INTEGUMENTARY Hx Dermatological Problems: No - MUSCULOSKELETAL/RHEUMATOLOGICAL Hx Musculoskeletal Disorders: No - GASTROINTESTINAL Hx Gastritis: Yes - GENITOURINARY/GYNECOLOGICAL Hx Genitourinary Disorders: No - PSYCHIATRIC Hx Psychophysiologic Disorder: No Hx Substance Use: No - SURGICAL HISTORY Other/Comment: gastric bypass - ANESTHESIA Hx Anesthesia: Yes Hx Anesthesia Reactions: No Meds Allergies/Adverse Reactions: Allergies Allergy/AdvReac Type Severity Reaction Status Date / Time No Known Allergies Allergy Verified 08/30/17 19:41 - Medications Medications: Current Medications Carvedilol (Coreg) 3.125 mg PO BID [facility] Last Admin: 10/30/18 09:43 Dose: Not Given Cyanocobalamin (Vitamin B12 1000 Mcg Tab) 5,000 mcg PO DAILY [facility] Last Admin: 10/30/18 09:51 Dose: Not Given Ferrous Sulfate (Feosol) 325 mg PO TID [facility] Last Admin: 10/30/18 09:51 Dose: Not Given Hydrochlorothiazide (Hydrodiuril) 25 mg PO DAILY [facility] Last Admin: 10/30/18 09:51 Dose: Not Given Lactated Ringer's (Lactated Ringer's) 1,000 mls @ 120 mls/hr IV .Q8H20M [facility] Last Admin: 10/30/18 05:20 Dose: Not Given Ampicillin Sodium/Sulbactam (Sodium 1.5 gm/ Sodium Chloride) 100 mls @ 100 mls/hr IVPB Q6 [facility]; Protocol Levothyroxine Sodium (Synthroid) 88 mcg PO DAILY@0630 [facility] Last Admin: 10/30/18 06:47 Dose: 88 mcg Lisinopril (Zestril) 40 mg PO DAILY [facility] Last Admin: 10/30/18 09:54 Dose: Not Given Metformin HCl (Glucophage) 1,000 mg PO BID [facility] Last Admin: 10/30/18 09:51 Dose: Not Given Morphine Sulfate (Morphine) 2 mg IVP Q4 PRN PRN Reason: Pain, moderate (4-7) Last Admin: 10/30/18 09:44 Dose: 2 mg Ondansetron HCl (Zofran Inj) 4 mg IVP Q4 PRN PRN Reason: Nausea/Vomiting Pantoprazole Sodium (Protonix Ec Tab) 40 mg PO DAILY [facility] Last Admin: 10/30/18 09:51 Dose: Not Given Results - Vital Signs Recent Vital Signs: Last Vital Signs Temp 98.1 F 10/30/18 08:24 Pulse 58 L 10/30/18 09:54 Resp 20 10/30/18 08:24 BP 122/75 10/30/18 09:54 Pulse Ox 94 L 10/30/18 08:24 - Labs Result Diagrams: 10/29/18 16:42 10/29/18 16:42 Labs: Laboratory Results - last 24 hr 10/29/18 10/29/18 10/30/18 16:42 16:42 05:00 WBC 7.1 RBC 4.66 Hgb 13.5 Hct 40.1 MCV 85.9 MCH 28.9 MCHC 33.6 RDW 13.4 Plt Count 179 MPV 9.0 Neut % (Auto) 73.8 Lymph % (Auto) 16.5 L [place] % (Auto) 8.4 Eos % (Auto) 0.6 Baso % (Auto) 0.7 Neut # (Auto) 5.2 Lymph # (Auto) 1.2 [place] # (Auto) 0.6 Eos # (Auto) 0.0 Baso # (Auto) 0.1 PT INR APTT Sodium 137 Potassium 4.2 Chloride 100 Carbon Dioxide 28 Anion Gap 13 BUN 26 H Creatinine 0.6 L Est GFR ( Amer) > 60 Est GFR (Non-Af Amer) > 60 POC Glucose (mg/dL) Random Glucose 114 H Calcium 9.0 Total Bilirubin 0.6 AST 25 ALT 27 Alkaline Phosphatase 59 Total Protein 7.3 Albumin 4.1 Globulin 3.2 Albumin/Globulin Ratio 1.3 Lipase 69 Urine Color Yellow Urine Clarity Slighty-cloudy Urine pH 6.0 Ur Specific [place] 1.031 H Urine Protein Negative Urine Glucose (UA) Neg Urine Ketones Negative Urine Blood Negative Urine Nitrate Negative Urine Bilirubin Negative Urine Urobilinogen 2.0 H Ur Leukocyte Esterase Neg Urine RBC (Auto) 2 Urine Microscopic WBC 3 Ur Squamous Epith Cells 5 10/30/18 10/30/18 05:19 06:05 WBC RBC Hgb Hct MCV MCH MCHC RDW Plt Count MPV Neut % (Auto) Lymph % (Auto) [place] % (Auto) Eos % (Auto) Baso % (Auto) Neut # (Auto) Lymph # (Auto) [place] # (Auto) Eos # (Auto) Baso # (Auto) PT 13.4 H INR 1.2 APTT 33.7 Sodium Potassium Chloride Carbon Dioxide Anion Gap BUN Creatinine Est GFR ( Amer) Est GFR (Non-Af Amer) POC Glucose (mg/dL) 99 Random Glucose Calcium Total Bilirubin AST ALT Alkaline Phosphatase Total Protein Albumin Globulin Albumin/Globulin Ratio Lipase Urine Color Urine Clarity Urine pH Ur Specific [place] Urine Protein Urine Glucose (UA) Urine Ketones Urine Blood Urine Nitrate Urine Bilirubin Urine Urobilinogen Ur Leukocyte Esterase Urine RBC (Auto) Urine Microscopic WBC Ur Squamous Epith Cells
--- NOTE | 2018-10-30 13:02 | US ---
Date of service: 10/30/2018 HISTORY: include liver and pancreas COMPARISON: None. TECHNIQUE: Sonographic evaluation of the right upper quadrant of the abdomen. FINDINGS: LIVER: Measures 19.9 cm in length. Patent portal and hepatic venous systems. Portal venous flow: Hepatopetal. echogenicity of the liver parenchyma. No mass. No intrahepatic bile duct dilatation. GALLBLADDER: Cholelithiasis. Negative study for gallbladder wall thickening, pericholecystic fluid, sonographic Ozuna's sign. COMMON BILE DUCT: Measures 5.5 mm. No stones. No dilatation. PANCREAS: Unremarkable as visualized. No mass. No ductal dilatation. RIGHT KIDNEY: Measures 6.4 x 11.6 cm in length. Normal echogenicity. No calculus, mass, or hydronephrosis. AORTA: No aneurysmal dilatation. IVC: Unremarkable. OTHER FINDINGS: None . IMPRESSION: Cholelithiasis. No sonographic evidence of acute cholecystitis. Hepatomegaly without focal abnormality.
--- NOTE | 2018-10-30 14:32 | CT ---
Date of service: 10/29/2018 PROCEDURE: CT Abdomen and Pelvis with contrast HISTORY: abdominal pain COMPARISON: 06/15/2015. CT abdomen and pelvis. October 30, 2018. Abdominal ultrasound. TECHNIQUE: Intravenous contrast dose: 95 cc Omnipaque 300. Radiation dose: Total exam DLP = 875.01 mGy-cm. This CT exam was performed using one or more of the following dose reduction techniques: Automated exposure control, adjustment of the mA and/or kV according to patient size, and/or use of iterative reconstruction technique. FINDINGS: LOWER THORAX: Unremarkable. LIVER: Hepatic steatosis. No focal masses. No intrahepatic bile duct dilatation or perihepatic ascites. GALLBLADDER AND BILE DUCTS: Cholelithiasis without CT evidence of acute cholecystitis. PANCREAS: Unremarkable. No gross lesion or ductal dilatation. SPLEEN: Unremarkable. ADRENALS: Unremarkable. No mass. KIDNEYS AND URETERS: Unremarkable. No hydronephrosis. No solid mass. VASCULATURE: Unremarkable. No aortic aneurysm. No atherosclerotic calcification or mural plaque present. BOWEL: Unremarkable. No obstruction. No gross mural thickening. APPENDIX: Normal appendix. PERITONEUM: Unremarkable. No free fluid. No free air. LYMPH NODES: Unremarkable. No enlarged lymph nodes. BLADDER: Unremarkable. REPRODUCTIVE: Not visible. Presumed hysterectomy. BONES: No acute fracture. Postoperative findings related prior laminectomy and fusion L5-S1. No evidence of orthopedic hardware failure. OTHER FINDINGS: None. IMPRESSION: Cholelithiasis without CT evidence of acute cholecystitis. No acute or significant findings related to/ accounting for the clinical presentation. Additional benign and/or incidental findings described above. No significant interval change compared to the prior examination(s). Concordant results (preliminary interpretation) provided by [employer]. Procedure Completed: 18:40. Preliminary Report: Interpreted and electronically signed: 19:48. Final Interpretation: 14:28. October 30, 2018.
--- NOTE | 2018-10-30 17:43 | NM ---
Date of service: Disease thoughts rent yes so she has good to go she does not have acute cholecystitis RI thanks a lot hepatic and I 10/29/2018 PROCEDURE: Nuclear Medicine Hepatobiliary Scan HISTORY: eval for cholecystitis COMPARISON: October 30, 2018. right upper quadrant ultrasound. TECHNIQUE: 5.4 mCi of technetium 99m Mebrofenin was administered intravenously. Planar images of the abdomen were obtained at 5 min intervals to 60 mins. Delayed images were also obtained. FINDINGS: LIVER: Timely and homogenous uptake. COMMON BILE DUCT: identified at 10 mins. GALLBLADDER: identified at 15 mins. SMALL BOWEL: Identified at 60 mins. IMPRESSION: Normal Hepatobiliary Scan. The cystic duct is patent.
--- NOTE | 2018-10-30 21:08 | CARD ---
APPROVED REPORT Date of service: 10/30/2018 EKG Measurement Heart [id number] <Conclusion> Normal sinus rhythm Nonspecific T wave abnormality Abnormal ECG
[2018-10-31] MEDS: Levothyroxine 88 MCG TAB PO SCH (05:34)
[2018-10-31] MEDS: Lactated Ringer's 1,000 ML IV SCH ×3 (06:20→19:50)
[2018-10-31 06:45] LABS: BASO % 0.4 % (0.0-2.0); EOS # 0.1 K/uL (0.0-0.7); EOS % 1.7 % (0.0-4.0); HEMOGLOBIN 12.6 g/dL (12.0-16.0); LYMPH # 2.4 K/uL (1.0-4.3); LYMPH % 47.9 % (20.0-40.0); MEAN CELL VOLUME 87.4 fl (81.0-99.0); MEAN CORPUSCULAR HEMOGLOBIN 28.6 pg (27.0-31.0); MEAN CORPUSCULAR HGB CONC 32.7 g/dL (33.0-37.0); MONO # 0.6 K/uL (0.0-0.8); MONO % 11.6 % (0.0-10.0); NEUT # 1.9 K/uL (1.8-7.0); NEUT % 38.4 % (50.0-75.0); NRBC % 0.3 % (0.0-0.0); RBC 4.43 Mil/uL (3.80-5.20); RED CELL DISTRIBUTION WIDTH 13.5 % (11.5-14.5)
[2018-10-31 06:57] LABS: ALB/GLOB RATIO 1.2 (1.0-2.1); ALBUMIN 3.9 g/dL (3.5-5.0); ALT/SGPT 22 U/L (9-52); AST/SGOT 24 U/L (14-36); BLOOD UREA NITROGEN 10 mg/dl (7-17); GFR NON-AFRICAN AMERICAN > 60
--- NOTE | 2018-10-31 07:58 | CP.PCM.HP ---
History of Present Illness - History of Present Illness History of Present Illness: CC: Abdominal Pain HPI: 53 y/o female with a PMH of HTN, DM2, and hyperlipidemia presented to the ED with abdominal pain and associated N/V/D. Pt reports the abdominal pain has been increasing in intensity, she describes it as diffuse pain that is strongest in the RUQ. PMH: Anemia, Back Problems, Diabetes, Gastritis, GERD, HTN, Hypercholesterolemia, Hypothyroidism. PSH: Back Surgery, Hernia Repair, Gastric Bypass. Allergies: NKDA. Subjective Review of Systems: Reviewed and no additional remarkable complaints except abdominal pain. Objective Appears: Anxious, Non-toxic, No Acute Distress. Head Exam: NORMAL INSPECTION, normocephalic. Eye Exam: Normal eye inspection, EOMI, PERRLA. Respiratory Exam: NORMAL BREATHING PATTERN, breath sounds clear bilaterally. Cardiovascular Exam: +S1, +S2. RRR. GI & Abdominal Exam: Diffuse tenderness, strongest pain in the RUQ. Neurological Exam: Alert, Awake, Oriented x3. Psychiatric exam: Normal mood. Calm and cooperative. Skin exam: Normal color, warm, dry. Assessment/Impression/Plan: 1.) Cholecystitis -General surgery input appreciated. -For HIDA scan + gallbladder ultrasound. -Possibly for surgery tomorrow. -IVF hydration; keep pt NPO. -Pain control + antiemetics -Continue current treatment. -EKG, coags, and CXR reviewed; if surgery is needed at this time, the pt is medically cleared. Present on Admission - Present on Admission Any Indicators Present on Admission: No Past Patient History - Tetanus Immunizations Tetanus Immunization: Unknown - Past Medical History & Family History Past Medical History?: Yes - Past Social History Smoking Status: Never Smoked - CARDIAC Hx Hypercholesterolemia: Yes Hx Hypertension: Yes - PULMONARY Hx Respiratory Disorders: No - NEUROLOGICAL Hx Neurological Disorder: No - HEENT Hx HEENT Problems: No - RENAL Hx Chronic Kidney Disease: No - ENDOCRINE/METABOLIC Hx Hypothyroidism: Yes - HEMATOLOGICAL/ONCOLOGICAL Hx Anemia: Yes - INTEGUMENTARY Hx Dermatological Problems: No - MUSCULOSKELETAL/RHEUMATOLOGICAL Hx Musculoskeletal Disorders: No - GASTROINTESTINAL Hx Gastritis: Yes - GENITOURINARY/GYNECOLOGICAL Hx Genitourinary Disorders: No - PSYCHIATRIC Hx Psychophysiologic Disorder: No Hx Substance Use: No - SURGICAL HISTORY Other/Comment: gastric bypass - ANESTHESIA Hx Anesthesia: Yes Hx Anesthesia Reactions: No Meds Allergies/Adverse Reactions: Allergies Allergy/AdvReac Type Severity Reaction Status Date / Time No Known Allergies Allergy Verified 08/30/17 19:41 Results - Vital Signs Recent Vital Signs: Last Vital Signs Temp 97.9 F 10/31/18 00:00 Pulse 55 L 10/31/18 00:00 Resp 18 10/31/18 00:00 BP 133/80 10/31/18 00:00 Pulse Ox 98 10/31/18 00:00 - Labs Result Diagrams: 10/31/18 06:20 10/31/18 06:20 Labs: Laboratory Results - last 24 hr 10/30/18 10/30/18 10/30/18 11:21 16:15 21:20 WBC RBC Hgb Hct MCV MCH MCHC RDW Plt Count MPV Neut % (Auto) Lymph % (Auto) Carson % (Auto) Eos % (Auto) Baso % (Auto) Neut # (Auto) Lymph # (Auto) Carson # (Auto) Eos # (Auto) Baso # (Auto) Sodium Potassium Chloride Carbon Dioxide Anion Gap BUN Creatinine Est GFR ( Amer) Est GFR (Non-Af Amer) POC Glucose (mg/dL) 83 73 101 Random Glucose Calcium Magnesium Total Bilirubin AST ALT Alkaline Phosphatase Total Protein Albumin Globulin Albumin/Globulin Ratio 10/31/18 10/31/18 10/31/18 05:26 06:20 06:20 WBC 5.0 RBC 4.43 Hgb 12.6 Hct 38.7 MCV 87.4 MCH 28.6 MCHC 32.7 L RDW 13.5 Plt Count 188 MPV 9.0 Neut % (Auto) 38.4 L Lymph % (Auto) 47.9 H Carson % (Auto) 11.6 H Eos % (Auto) 1.7 Baso % (Auto) 0.4 Neut # (Auto) 1.9 Lymph # (Auto) 2.4 Carson # (Auto) 0.6 Eos # (Auto) 0.1 Baso # (Auto) 0.0 Sodium 140 Potassium 3.6 Chloride 104 Carbon Dioxide 30 Anion Gap 10 BUN 10 Creatinine 0.5 L Est GFR ( Amer) > 60 Est GFR (Non-Af Amer) > 60 POC Glucose (mg/dL) 80 Random Glucose 85 Calcium 9.0 Magnesium 2.0 Total Bilirubin 0.5 AST 24 ALT 22 Alkaline Phosphatase 52 Total Protein 7.1 Albumin 3.9 Globulin 3.2 Albumin/Globulin Ratio 1.2 Assessment & Plan (1) Cholecystitis Status: Acute
[2018-10-31 08:04] LABS: INR 1.2; PROTHROMBIN TIME 13.2 Seconds (9.8-13.1)
[2018-10-31 08:05] LABS: PARTIAL THROMBOPLASTIN TIME 34.4 Seconds (25.6-37.1)
[2018-10-31] MEDS: Pantoprazole 40 mg EC Tab PO SCH (09:04)
[2018-10-31] MEDS ORDERED: ePHEDrine 50 mg/ml Inj ONE (10:22)
[2018-10-31] MEDS ORDERED: Propofol 10 mg/ml Inj (20 ML) ONE (10:22)
[2018-10-31] MEDS ORDERED: Succinylcholine Chloride 20 mg/ml Syr (5 ml) IV ONE (10:22)
[2018-10-31] MEDS ORDERED: Rocuronium 10 mg/ml (5 ml) ONE (10:22)
[2018-10-31] MEDS ORDERED: Midazolam 2 MG/2 ML VIAL ONE (10:22)
[2018-10-31] MEDS ORDERED: Lactated Ringer's 1,000 ML IV ONE ×2 (10:35→11:20)
[2018-10-31] MEDS: Bupivacaine 0.5% Inj(30mL) ONE ×2 (11:01→11:35)
[2018-10-31] MEDS ORDERED: Dexamethasone 4 mg/1 ml ONE (11:07)
[2018-10-31] MEDS ORDERED: Neostigmine 1:1000 (1 mg/ml) Inj ONE (11:08)
--- NOTE | 2018-10-31 11:49 | PCM.SURG1 ---
Surgeon's Initial Post Op Note - Surgeon's Notes Surgeon: Dr. Erickson Information Assurance: Dr. Dee Type of Anesthesia: General Endo, Local Anesthesia Administered By: Marcella Pre-Operative Diagnosis: Symptomatic Cholelithiasis Operative Findings: Distended non inflammed gallbladder Post-Operative Diagnosis: same Operation Performed: Laparoscopic Cholecystectomy Specimen/Specimens Removed: gallbladder Estimated Blood Loss: EBL {In ML}: 20 Blood Products Given: N/A Drains Used: No Drains Post-Op Condition: Good Date of Surgery/Procedure: 10/24/18 Time of Surgery/Procedure: 11:49
[2018-10-31] MEDS: HYDROmorphone 0.5 mg/0.5 ml ISec IVP PRN ×3 (12:10→12:40)
--- NOTE | 2018-11-01 00:53 | OP ---
PROCEDURE DATE: 10/31/2018 PREOPERATIVE DIAGNOSIS: Symptomatic cholelithiasis. POSTOPERATIVE DIAGNOSIS: Symptomatic cholelithiasis. PROCEDURE: Laparoscopic cholecystectomy. SURGEON: Sarbjit Erickson MD VP PUBLISHER DEVELOPMENT: Raphael Dee MD TYPE OF ANESTHESIA: General. FINDINGS: The patient had a distended, non-inflamed gallbladder, cystic duct and cystic artery clearly identified, critical view of safety obtained. ESTIMATED BLOOD LOSS: About 10 mL. COMPLICATIONS: None. SPECIMEN: Gallbladder. CONDITION: Stable. BRIEF HISTORY OF PATIENT: This is a 53-year-old female who presented to the emergency room with initial complaints of nausea, vomiting, and diarrhea for a period of one day which started shortly after eating dinner. The patient was evaluated in the emergency room and was admitted for observation. The patient was found to have her gallbladder filled with stones along with possible enteritis. The patient was examined and evaluated. Her nausea, vomiting, and diarrhea had improved, but she continued to have epigastric and right upper quadrant pain. On physical exam, given the patient's findings, a discussion was held with the patient regarding laparoscopic cholecystectomy. The patient agreed. The patient was also explained the risks and benefits of the procedure, not limited to bleeding, infection, possible injury to biliary tree, possible injury to the stomach, small bowel or colon. The patient agreed and surgical consent was obtained. DESCRIPTION OF PROCEDURE: On the date of procedure, the patient was brought to the operating room, placed in supine position. Bilateral sequential devices were placed to lower extremities. The patient was then placed under general endotracheal anesthesia, which she tolerated well. The patient was then prepped and draped in the usual sterile fashion. After an adequate time-out, the abdominal cavity was entered through the umbilicus using a Veress needle. There were good opening pressures on the Veress needle. The abdominal cavity was then insufflated with CO2 to 15 mmHg which the patient tolerated well. We then proceeded to make a 1 cm infraumbilical vertical incision using an #11 blade scalpel. We then proceeded to place a 11-mm trocar into the abdominal cavity. We then inserted a 5-mm laparoscope and performed a diagnostic laparoscopy. No gross pathology was identified or injury from our initial port insertion. We then proceeded to place a 5-mm port through the subxiphoid area along with two other 5-mm ports to the right abdomen, all under direct visualization. We then proceeded to identify the gallbladder and retracted it to right upper quadrant. The patient had some omentum attached to the gallbladder, which we bluntly dissected off. We then proceeded with our dissection around the cystic duct and cystic artery in order to obtain the critical view of safety. The cystic duct and cystic artery were identified and isolated. Once each of these structures were isolated, two distal clips were placed along with a more proximal clip. Once the clips were placed, cystic duct and cystic artery were transected. We then proceeded to remove the gallbladder off the liver bed using a hook cautery. Throughout the removal of the gallbladder, meticulous attention was paid to the liver bed to obtain adequate hemostasis. Once the gallbladder was removed from the liver bed, it was placed in an EndoCatch bag and removed through the umbilical port site under direct visualization. The liver fossa was then irrigated with saline, which was all suctioned off. We proceeded to re-examine the liver bed and adequate hemostasis was confirmed. At this point, we were satisfied with the procedure where we proceeded to desufflate the abdominal cavity and remove all the trocars. We proceeded to reapproximate the fascia at the umbilical port site using an 0 Vicryl stitch. The skin at the laparoscopic port site incisions were then reapproximated using a 4-0 Monocryl. The wounds were infiltrated with local anesthetic. The abdomen was then cleaned, washed and dried. Dermabond was applied to the incision sites. The patient was extubated without any complications and brought to the recovery room in stable condition. At the end of procedure, there was an adequate count to all sponges, needles, and lap pads. Sarbjit Erickson MD
--- NOTE | 2018-11-01 01:15 | CP.PCM.PN ---
Subjective - Date & Time of Evaluation Date of Evaluation: 10/31/18 Time of Evaluation: 10:00 - Subjective Subjective: Subjective Pt currently in OR for surgery. Chart, labs, and meds reviewed; plan of care discussed with staff. No acute events reported overnight. Assessment/Impression/Plan: 1.) Cholecystitis -Currently undergoing laparoscopic cholecystectomy with surgical team. -Monitor for s/s infection. -IVF hydration post-operatively (LR @ 125 ml/hr). -Morphine for pain, zofran for nausea. -Advance diet as tolerated after surgery. -Continue current treatment. Objective - Vital Signs/Intake and Output Vital Signs (last 24 hours): Temp Pulse Resp BP Pulse Ox 98.5 F 60 18 133/75 97 10/31/18 23:00 10/31/18 23:00 10/31/18 23:00 10/31/18 23:00 10/31/18 23:00 Intake and Output: 10/31/18 11/01/18 18:59 06:59 Intake Total 1300 Balance 1300 - Medications Medications: Current Medications Carvedilol (Coreg) 3.125 mg PO BID [facility] Last Admin: 10/31/18 16:25 Dose: 3.125 mg Cyanocobalamin (Vitamin B12 1000 Mcg Tab) 5,000 mcg PO DAILY [facility] Last Admin: 10/31/18 09:04 Dose: Not Given Ferrous Sulfate (Feosol) 325 mg PO TID [facility] Last Admin: 10/31/18 16:25 Dose: 325 mg Hydrochlorothiazide (Hydrodiuril) 25 mg PO DAILY [facility] Last Admin: 10/31/18 09:04 Dose: Not Given Hydromorphone HCl (Dilaudid) 0.5 mg IVP Q5M PRN PRN Reason: Pain, moderate (4-7) Last Admin: 10/31/18 12:40 Dose: 0.5 mg Ampicillin Sodium/Sulbactam (Sodium 1.5 gm/ Sodium Chloride) 100 mls @ 100 mls/hr IVPB Q6 [facility]; Protocol Last Admin: 10/31/18 21:00 Dose: 100 mls/hr Lactated Ringer's (Lactated Ringer's) 1,000 mls @ 125 mls/hr IV .Q8H [facility] Last Admin: 10/31/18 19:50 Dose: 125 mls/hr Levothyroxine Sodium (Synthroid) 88 mcg PO DAILY@0630 [facility] Last Admin: 10/31/18 05:34 Dose: Not Given Lisinopril (Zestril) 40 mg PO DAILY [facility] Last Admin: 10/31/18 09:04 Dose: Not Given Metformin HCl (Glucophage) 1,000 mg PO BID [facility] Last Admin: 10/31/18 16:25 Dose: 1,000 mg Morphine Sulfate (Morphine) 2 mg IVP Q4 PRN PRN Reason: Pain, moderate (4-7) Last Admin: 10/31/18 20:54 Dose: 2 mg Ondansetron HCl (Zofran Inj) 4 mg IVP Q4 PRN PRN Reason: Nausea/Vomiting Pantoprazole Sodium (Protonix Ec Tab) 40 mg PO DAILY [facility] Last Admin: 10/31/18 09:04 Dose: Not Given - Labs Labs: 10/31/18 06:20 10/31/18 06:20 PT 13.2 Seconds (9.8-13.1) H 10/31/18 06:20 INR 1.2 10/31/18 06:20 APTT 34.4 Seconds (25.6-37.1) 10/31/18 06:20 Assessment and Plan (1) Cholecystitis Status: Acute
[2018-11-01] MEDS: Lactated Ringer's 1,000 ML IV SCH (03:56)
[2018-11-01] MEDS: Levothyroxine 88 MCG TAB PO SCH (05:33)
[2018-11-01 06:34] LABS: BASO % 0.2 % (0.0-2.0); HEMOGLOBIN 10.7 g/dL (12.0-16.0); LYMPH # 1.5 K/uL (1.0-4.3); LYMPH % 24.1 % (20.0-40.0); MEAN CELL VOLUME 86.8 fl (81.0-99.0); MEAN CORPUSCULAR HEMOGLOBIN 28.5 pg (27.0-31.0); MEAN CORPUSCULAR HGB CONC 32.8 g/dL (33.0-37.0); MONO # 0.6 K/uL (0.0-0.8); MONO % 10.2 % (0.0-10.0); NEUT # 4.1 K/uL (1.8-7.0); NEUT % 65.5 % (50.0-75.0); RBC 3.77 Mil/uL (3.80-5.20); RED CELL DISTRIBUTION WIDTH 13.3 % (11.5-14.5); WHITE BLOOD COUNT 6.3 K/uL (4.8-10.8)
[2018-11-01 07:05] LABS: ALB/GLOB RATIO 1.1 (1.0-2.1); ALBUMIN 3.1 g/dL (3.5-5.0); ALT/SGPT 58 U/L (9-52); AST/SGOT 58 U/L (14-36); BLOOD UREA NITROGEN 12 mg/dl (7-17); CALCIUM 8.6 mg/dL (8.4-10.2); GFR NON-AFRICAN AMERICAN > 60
--- NOTE | 2018-11-01 07:50 | CP.PCM.PN ---
Subjective - Date & Time of Evaluation Date of Evaluation: 11/01/18 Time of Evaluation: 07:49 - Subjective Subjective: Surgery Progress Note- Dr. Erickson Patient seen and examined. Complaining of austyn-incisional pain and generalized lower abdominal pain. Currently freely voiding, passing flatus, denies BM. Tolerating regular diet. Denies nausea vomiting, fevers, chills. + OOB and ambulating Objective - Vital Signs/Intake and Output Vital Signs (last 24 hours): Temp Pulse Resp BP Pulse Ox 97.7 F 58 L 18 148/76 96 11/01/18 02:53 11/01/18 02:53 11/01/18 02:53 11/01/18 02:53 11/01/18 02:53 - Medications Medications: Current Medications Carvedilol (Coreg) 3.125 mg PO BID [facility] Last Admin: 10/31/18 16:25 Dose: 3.125 mg Cyanocobalamin (Vitamin B12 1000 Mcg Tab) 5,000 mcg PO DAILY [facility] Last Admin: 10/31/18 09:04 Dose: Not Given Ferrous Sulfate (Feosol) 325 mg PO TID [facility] Last Admin: 10/31/18 16:25 Dose: 325 mg Hydrochlorothiazide (Hydrodiuril) 25 mg PO DAILY [facility] Last Admin: 10/31/18 09:04 Dose: Not Given Hydromorphone HCl (Dilaudid) 0.5 mg IVP Q5M PRN PRN Reason: Pain, moderate (4-7) Last Admin: 10/31/18 12:40 Dose: 0.5 mg Ampicillin Sodium/Sulbactam (Sodium 1.5 gm/ Sodium Chloride) 100 mls @ 100 mls/hr IVPB Q6 [facility]; Protocol Last Admin: 11/01/18 03:56 Dose: 100 mls/hr Lactated Ringer's (Lactated Ringer's) 1,000 mls @ 125 mls/hr IV .Q8H [facility] Last Admin: 11/01/18 03:56 Dose: 125 mls/hr Levothyroxine Sodium (Synthroid) 88 mcg PO DAILY@0630 [facility] Last Admin: 11/01/18 05:33 Dose: 88 mcg Lisinopril (Zestril) 40 mg PO DAILY [facility] Last Admin: 10/31/18 09:04 Dose: Not Given Metformin HCl (Glucophage) 1,000 mg PO BID [facility] Last Admin: 10/31/18 16:25 Dose: 1,000 mg Morphine Sulfate (Morphine) 2 mg IVP Q4 PRN PRN Reason: Pain, moderate (4-7) Last Admin: 11/01/18 02:35 Dose: 2 mg Ondansetron HCl (Zofran Inj) 4 mg IVP Q4 PRN PRN Reason: Nausea/Vomiting Pantoprazole Sodium (Protonix Ec Tab) 40 mg PO DAILY [facility] Last Admin: 10/31/18 09:04 Dose: Not Given - Labs Labs: 11/01/18 05:40 11/01/18 05:40 PT 13.2 Seconds (9.8-13.1) H 10/31/18 06:20 INR 1.2 10/31/18 06:20 APTT 34.4 Seconds (25.6-37.1) 10/31/18 06:20 - Constitutional Appears: Non-toxic, No Acute Distress - Head Exam Head Exam: ATRAUMATIC - Eye Exam Eye Exam: EOMI. absent: Scleral icterus - ENT Exam ENT Exam: Mucous Membranes Moist - Cardiovascular Exam Cardiovascular Exam: REGULAR RHYTHM. absent: Bradycardia, Tachycardia - GI/Abdominal Exam GI & Abdominal Exam: Soft, Tenderness (austyn-umbilical, austyn-incisional tenderness). absent: Distended, Firm, Guarding, Rigid - Extremities Exam Extremities Exam: absent: Calf Tenderness - Neurological Exam Neurological Exam: Alert, Awake, Oriented x3 - Skin Skin Exam: Intact, Warm Assessment and Plan - Assessment and Plan (Free Text) Assessment: 53F s/p Lap Chantelle POD#1 Plan: - Pain control PRN - Diet as tolerated - recommend OOB and ambulation - cleared for discharge from a surgical standpoint
[2018-11-01 08:20] VITALS: RESP 20
[2018-11-01] MEDS ORDERED: Potassium Chloride 20 mEq ER Tab PO ONE (08:46)
[2018-11-01] MEDS: Pantoprazole 40 mg EC Tab PO SCH (09:14)
[2018-11-01 16:03] VITALS: PULSE 64; TEMP 97.2; O2SAT 98
[2018-11-01 16:40] VITALS: BP 149/74
== END 2018-11-01 18:29 | disposition home or self-care (01) | DRG 419 ==
LOC: H.ER 15:14 → H.ERHOLD 20:26 → H.MEDSURG1 23:10
PROVIDERS: ADMIT Family Medicine; ATTEND Family Medicine
PROC: 0FT44ZZ Resection of Gallbladder, Percutaneous Endoscopic Approach (ICD-10-PCS; principal; 2018-10-31 09:15)
DX: K80.10 Calculus of gallbladder with chronic cholecystitis without obstruction (principal); K52.9 Noninfective gastroenteritis and colitis, unspecified; E11.9 Type 2 diabetes mellitus without complications; K21.9 Gastro-esophageal reflux disease without esophagitis; E03.9 Hypothyroidism, unspecified; I10 Essential (primary) hypertension; E78.5 Hyperlipidemia, unspecified; E78.00 Pure hypercholesterolemia, unspecified; K29.70 Gastritis, unspecified, without bleeding; D64.9 Anemia, unspecified; F17.210 Nicotine dependence, cigarettes, uncomplicated; Z98.84 Bariatric surgery status; Z79.82 Long term (current) use of aspirin; Z90.710 Acquired absence of both cervix and uterus; Z79.84 Long term (current) use of oral hypoglycemic drugs